=== PATIENT | male | born 1950 | race Caucasian/White ===

== ENCOUNTER 2017-03-05 06:12 | Day surgery (SDC) | payer MEDICARE, OTHER ==
[2017-02-27 17:46] LABS: HEMATOCRIT 41.3 % (40.0-51.0); HEMOGLOBIN 14.4 g/dL (13.6-17.8)
--- NOTE | ~2017-03-05 | OP ---
Record Of Operation [facility] [address] [place]. [address] NAME: CARRI HICKEY : 46 STATUS : [facility]#: [id number] AGE: 66 ADM/REG DATE : 03/05/17 MR#: [id number] REPORT SERV DATE: 03/05/17 DICTATED BY: HALIMA FONSECA DATE: 03/05/17 REPORT STATUS : Draft TRANSCRIBED BY: MODL DATE: 03/05/17 DATE OF PROCEDURE: 03/05/2017 PREOPERATIVE DIAGNOSIS: Malignant melanoma of the right earlobe, intermediate thickness. POSTOPERATIVE DIAGNOSIS: Malignant melanoma of the right earlobe, intermediate thickness. PROCEDURE PERFORMED: 1. Wide local excision, right earlobe malignant melanoma. 2. Complex closure of 3.5 x 2.5 cm defect. 3. Bulger lymph node biopsy, deep cervical lymph node, right parotid tail/external jugular basin. SURGEON: Halima Fonseca M.D. MRI CT TECH: Ann Kelsey. ANESTHESIA: General. COMPLICATIONS: None. CONDITION: Stable to recovery. INDICATIONS: A 66-year-old male with a Rivera level 4, Breslow at least 0.9 mm and 1 per mm squared, malignant melanoma. The risks, benefits, and alternatives to wide excision with complex closure and lymphatic mapping were explained and he agreed. PROCEDURE IN DETAIL: The patient was identified in the preoperative holding area. His nuclear medicine scan was reviewed prior to this and showed an area in the right upper neck likely in the external jugular vein. Lymphatic system that was positive on the nuclear scan. He was taken back to the operating room and placed supine on the operating room table. General anesthesia was established. A time-out was called and the patient and procedure were confirmed. The right earlobe lesion was now outlined with 1 to 1-1/2 cm margin and infiltrated subcutaneously with 1% lidocaine with 1:100,000 epinephrine. The Neoprobe was used to identify the hot lymph node in the right parotid tail/external jugular basin. This was marked with a surgical marking pen and infiltrated subcutaneously with 1% lidocaine with 1:100,000 epinephrine approximately 1 mL. A skin crease was used and marked with a surgical ink pen for this portion of the procedure. He was prepped and draped in standard fashion for the operation. Using a 2.5x loupe magnification and headlight illumination, the operation commenced. A 15 blade was used to make the skin incision around the earlobe going into the preauricular skin and involving the lower portion of the carolina cavum and tragal cartilage. This was full thickness using Bovie cautery. The defect was 3.5 x 2.5 cm. It was closed in layers using 3-0 Vicryl and a 5-0 interrupted Prolene. The leading edge of the inferior carolina cavum and the preauricular cartilage was excised at a deeper margin to help with skin closure, and this was sent for Record Of Operation [address] [address] NAME: CARRI HICKEY : 46 STATUS : [facility] PAT#: [id number] AGE: 66 ADM/REG DATE : 03/05/17 MR#: [id number] REPORT SERV DATE: 03/05/17 DICTATED BY: HALIMA FONSECA DATE: 03/05/17 REPORT STATUS : Draft TRANSCRIBED BY: MODL DATE: 03/05/17 permanent pathology analysis. The specimen was oriented with a stitch to 12 o'clock and sent for permanent pathology analysis. An incision in the neck was then made with cut mode on the Bovie cautery through the platysma. Subplatysmal flap was elevated. The greater auricular nerve and the external jugular veins were identified and the node was noted in the deep lobe of the right parotid which was excised using the Harmonic scalpel. It measured 1957 on the probe and the basin was 0. There was no other activity in the neck and this correlated with lymphatic mapping. The wound was irrigated. Bipolar cautery used for hemostasis and it was closed with 3-0 Vicryl and a 5-0 running Monocryl followed by Steri- Strips. The patient was awakened and taken to recovery in stable condition. PH/MODL Halima Fonseca M.D. / [id number] CC: Evelyne Bass Alex G
== END 2017-03-05 14:30 | disposition home or self-care (01) ==
LOC: SDC 06:12
PROVIDERS: Specialist
PROC: 09B0XZZ Excision of Right External Ear, External Approach (ICD-10-PCS; 2017-03-05)
PROC: 09T Ear, Nose, Sinus, Resection (ICD-10-PCS; principal; 2017-03-05 09:00)
DX: C43.21 Malignant melanoma of right ear and external auricular canal (principal); Z90.89 Acquired absence of other organs; Z98.890 Other specified postprocedural states
CPT/HCPCS: 78195; 85014; 85018; 88304; 88305; 88307; 88341; 88342; 93005; A9541; J0690; J2250; J2405; J3010